=== PATIENT | female | born 1990 | race Caucasian/White ===

== ENCOUNTER 2019-01-17 17:33 | Emergency (ER) | payer BC ==
[~2019-01-17] VITALS: Ht 154.9 cm; Wt 77.3 kg
[2019-01-17] MEDS ORDERED: AMOXICILLIN 8751 TAB PO (17:37)
[2019-01-17] MEDS ORDERED: TYLENOL W/COD1 UDTAB PO (17:38)
[2019-01-17] MEDS ORDERED: AMITRIPTYLINE H75 M1 PO (17:38)
[2019-01-17] MEDS ORDERED: SINGULAIR 110 MG/TAB PO (17:38)
[2019-01-17] MEDS ORDERED: INDERAL LA 80MG80 MG PO (17:38)
[2019-01-17] MEDS ORDERED: FLONASE NASAL S16 GM NS (17:39)
[2019-01-17] MEDS ORDERED: ZYRTEC 10MG10 MG PO (17:39)
[2019-01-17] MEDS ORDERED: MAXALT10 MG (17:39)
[2019-01-17] MEDS ORDERED: FIORICET 325 MG1 TA1 PO ×2 (17:39→19:18)
[2019-01-17] MEDS ORDERED: TYLENOL 325MG325 MG PO (17:40)
[2019-01-17] MEDS ORDERED: KLONOPIN 0.5MG0.5 MG PO (17:40)
[2019-01-17] MEDS ORDERED: EC-NAPROSYN500 MG PO (17:40)
[2019-01-17 18:06] LABS: COLLECTION METHOD CLEAN CATCH
[2019-01-17 18:17] LABS: BASO # 0.1 (0.0-0.2); BASO % 0.6 % (0.0-2.0); EOS # 0.2 (0.0-0.7); EOS % 1.8 % (0-4.0); GRAN # 5.1 (1.4-6.5); GRAN % 54.8 % (42.2-75.2); HEMATOCRIT 37.8 % (37.0-47.0); LYMPH # 3.5 (1.2-3.4); LYMPH % 38.2 % (20.0-51.0); MEAN CELL VOLUME 99 fl (80.0-100.0); MEAN CORPUSCULAR HEMOGLOBIN 34 pg (27.0-31.0); MEAN CORPUSCULAR HGB CONC 34 g/dl (33.0-37.0); MEAN PLATELET VOLUME 10.4 fl (7.4-10.4); MONO # 0.4 (0.1-0.6); MONO % 4.3 % (1.7-9.3); PLATELET COUNT 247 K/mm3 (130-400); RED BLOOD COUNT 3.82 M/mm3 (4.10-5.30); REDCELL DISTRIBUTION WIDTH-CV 12.5 % (11.5-14.5)
[2019-01-17 18:20] LABS: PH 6 (5-8); URINE APPEARANCE Cloudy; URINE BACTERIA Rare /hpf; URINE BILIRUBIN Negative (NEGATIVE); URINE BLOOD 2+ (NEGATIVE); URINE COLOR Yellow; URINE GLUCOSE Negative (NEGATIVE); URINE KETONE Negative (NEGATIVE); URINE LEUKOCYTE ESTERASE 3+ (NEGATIVE); URINE NITRATE Negative (NEGATIVE); URINE PROTEIN(semi-quant) Negative (NEGATIVE); URINE UROBILINOGEN Negative (NEGATIVE)
[2019-01-17 18:31] LABS: ALANINE AMINOTRANSFERASE 64 U/L (9-52); ALBUMIN 4.7 gm/dL (3.5-5.0); ALKALINE PHOSPHATASE 66 U/L (50-136); ANION GAP 11 mmol/L (7-16); AST,SGOT 62 U/L (15-37); BILIRUBIN,TOTAL 0.5 mg/dL (0.0-1.0); BLOOD UREA NITROGEN 10 mg/dL (7-17); CALCIUM 9.7 mg/dL (8.4-10.2); CARBON DIOXIDE 25 mmol/L (22-30); CHLORIDE 102 mmol/L (98-107); CREATININE, serum 0.74 (0.52-1.25); GLUCOSE 102 mg/dL (74-106); POTASSIUM 3.5 mmol/L (3.4-5.0); SODIUM 138 mmol/L (137-145)
[2019-01-17 19:39] VITALS: BP 118/94; PULSE 97; TEMP 98.1
[2019-01-17] MEDS ORDERED: ZOFRAN 4MG T4 MG/TAB PO (19:50)
[2019-01-20] MEDS ORDERED: DIFLUCAN 100MG100 MG PO (20:01)
== END 2019-01-17 19:53 | disposition home or self-care (01) ==
LOC: COL.ER 17:33
PROVIDERS: Emergency Medicine
DX: I10 Essential (primary) hypertension (principal); R00.0 Tachycardia, unspecified; Z79.51 Long term (current) use of inhaled steroids
CPT/HCPCS: J0780; J7030